=== PATIENT | male | born 1945 | race Caucasian/White ===

== ENCOUNTER 2016-07-20 14:16 | Inpatient (IN) | payer OTHER, MEDICAID ==
[2016-07-20] MEDS ORDERED: NS 1,000 ML IV ONE ×2 (14:35→14:41)
--- NOTE | 2016-07-20 14:35 | EDPHY ---
H & P HPI/ROS: CHIEF COMPLAINT: Diarrhea HISTORY OF PRESENT ILLNESS: The patient is a 71 year old male, brought in by EMS with diarrhea for the past 4 days. The patient has 4-5 episodes of diarrhea daily. Diarrhea is nonbloody and not dark. He denies abdominal pain or vomiting. The patient has associated chills and lightheadedness. He has not fainted and he has no associated chest pain. The patient is currently on doxycycline for ?hx of MRSA?. He has an open wound to his left lower extremity that has been erythematous for a few months. He is followed by a strategy specialist for this. The patient's home care nurse has noticed the patient's blood pressure has been lower recently. Patient denies fever or urinary complaints. No recent cold symptoms. Patient reports that the erythema and swelling of his right leg is the same as it has been for months. REVIEW OF SYSTEMS: Aside from elements discussed in the HPI, a comprehensive 10-point review of systems was reviewed and is negative. PAST MEDICAL HISTORY: DVT, PE, Cardiac stents, Gastric ulcer SOCIAL HISTORY: The patient lives at home alone, he has home healthcare. VITAL SIGNS: Reviewed by me. BP 95/41 GENERAL: Overweight, resting comfortably in no respiratory distress. HEENT: Atraumatic. Eyes: No icterus, no injection. Mouth: dry mucous membranes. No erythema or lesions. Neck: supple with no adenopathy. LUNGS: Clear to auscultation bilaterally, no wheezes, rhonchi or rales. CARDIAC: Regular rate and rhythm, no rubs, murmurs or gallops. ABDOMEN: Obese, soft, no focal tenderness. BACK: No CVA tenderness. EXTREMITIES: 4+ edematous bilateral lower extremities, deformities of both feet. Left lower leg has a dressed, healing wound on the medial calf. Diffuse erythema extending up to mid thigh on medial aspect. NEURO: Alert and oriented, grossly nonfocal. SKIN: Warm and dry, no rash. PSYCHIATRIC: Normal mentation, no agitation. Portions of this note were transcribed by a manager medical. I personally performed a history, physical exam, medical decision making, and confirmed accuracy of information the transcribed note. - Personal History Tetanus Vaccine Date: 2007 - Medical/Surgical History Hx Asthma: No Hx Chronic Respiratory Disease: No Hx Diabetes: Yes Hx Cardiac Disease: Yes Hx Renal Disease: Yes Hx Cirrhosis: No Hx Alcoholism: No Hx HIV/AIDS: No Hx Splenectomy or Spleen Trauma: No Other PMH: NIDDM, CAD WITH STENTS 05/2013 AND 06/2013, DVT, HTN, CRI, CELLULITIS, FASCIITIS,RHEUMATOID ARTHRITIS, HYPOTHYROID, ADHD, OA, gi bleed - Social History Smoking Status: Never smoked Constitutional: Initial Vital Signs Temperature (C) 36.8 C 07/20/16 14:32 Heart Rate 66 07/20/16 14:32 Respiratory Rate 20 07/20/16 14:32 Blood Pressure 95/41 L 07/20/16 14:32 O2 Sat (%) 93 07/20/16 14:32 O2 Delivery Mode Room Air Allergies/Adverse Reactions: Sulfa (Sulfonamide Antibiotics) Allergy (Severe, Verified 10/20/13 18:35) Hives vancomycin Allergy (Verified 06/23/14 21:58) Home Medications: Medication Instructions Recorded Doxycycline Hyclate 50 mg PO BID 05/27/11 Folic Acid [Folic Acid 1 MG (*)] 1 mg PO DAILY 11/02/12 Pioglitazone HCl [Actos 15mg (*)] 15 mg PO DAILY 11/02/12 Ranitidine HCl [Ranitidine HCl 150 150 mg PO DAILY@199911/02/12 mg] Sertraline HCl [Zoloft 100mg (*)] 100 mg PO DAILY 11/02/12 Ascorbic Acid [Vitamin C 500 mg 1,000 mg PO DAILY 06/10/13 (*)] Clotrimazole 1% [Lotrimin 1%] 1 oneal TP DAILY PRN 06/10/13 EPINEPHrine [Epipen 0.3 MG] 0.3 mg IM ONCE PRN 06/10/13 Fluocinonide/Emollient Base 15 gm TP BID PRN 06/10/13 [Fluocinonide-Emol 0.05% Cream] Levothyroxine [Synthroid 112 mcg 112 mcg PO DAILY06 06/10/13 (*)] Multivitamins [Multivitamin (*)] 1 each PO DAILY 06/10/13 Atorvastatin Calcium [Lipitor 40 40 mg PO DAILY 07/01/13 mg (*)] Herbals/Supplements -Info Only 1 each PO AD 07/01/13 methYLPHENIDATE HCL [Ritalin 10mg 10 mg PO DAILY 07/01/13 (*)] Rituxan Dose Unknown 1 infusset IV Q180D 09/04/13 Silver Sulfadiazine [Thermazene 1 oneal TP DAILY 09/04/13 (*)] Baclofen [Baclofen 10 mg (*)] 10 mg PO BID 06/24/14 Leflunomide [Arava 20 mg (*)] 20 mg PO DAILY 06/24/14 Methylphenidate HCl [Ritalin 5mg 5 mg PO DAILY PRN 06/24/14 (*)] Tamsulosin HCl [Flomax 0.4 MG (*)] 0.4 mg PO DAILY 06/24/14 Ferrous Sulfate [Ferrous Sulf 325 325 mg PO DAILY #30 tab 06/26/14 MG (OTC)] Pantoprazole Sodium [Protonix 40mg 40 mg PO DAILY #30 tab 06/26/14 (RX)] Calcitriol [Calcitriol (*)] 0.25 mcg PO DAILY 07/20/16 Enalapril Maleate [Vasotec 5 MG 5 mg PO BID 07/20/16 (*)] Furosemide [Lasix 40 MG (*)] 40 mg PO BID 07/20/16 Gabapentin [Neurontin 300 MG (*)] 300 mg PO BID@07/20/16 Gabapentin [Neurontin 300 MG (*)] 600 mg PO HS 07/20/16 Hydrocodone/Acetaminophen [Challis 0.5 tab PO Q4H PRN 07/20/16 5/325 (*)] Warfarin Sodium [Coumadin 5MG (*)] 10 mg PO Q2D 07/20/16 Warfarin Sodium [Coumadin 7.5MG 7.5 mg PO Q2D 07/20/16 (*)] amLODIPine BESYLATE [Norvasc 5 mg 5 mg PO BID 07/20/16 (*)] Medical Decision Making - Diagnostics EKG Interpretation: 12-LEAD EKG: Please see the full report in [facility]. My interpretation: Sinus rhythm, low-voltage Imaging: Results: An ultrasound scan of the left lower extremity was obtained. The results of the study were reported to me: No evidence of DVT. Please see the full radiology report. The study was read by Dr. Garcia. I discussed the results of the study with the patient. ED Course/Re-evaluation: Plan for stool sample and urinalysis. Plan to evaluate for possible sepsis due to redness and warmth of his lower extremity. Labs and lactic acid are pending. 4:00 p.m.: I reevaluated the patient, he tells me he received 2 rounds of Augmentin in April. Clostridium difficile is suspected. Stool sample will be sent. Patient meets sepsis criteria. He his hypotensive 95/41 on arrival. He has a lactic acid of 3.1. WBC is elevated at 15.61. Labs show renal insufficiency, Creatinine is 2.6 and BUN 47. I spoke to the hospitalist, the patient will be admitted to Dr. Douglas. IV was established, the patient received normal saline. I ordered a lower extremity US. US is negative for acute DVT. Dr. Reynolds saw the patient. He was started on Ceftriaxone. Severe Sepsis/Septic Shock Care NoteThe patient presents to the ED with cellulits and diarrhea identified as an acute infection. The patient did have evidence of end-organ dysfunction and met criteria for severe sepsis. This condition was identified by myself at 15:41 The patients vital signs are 95/58 , 73, 20, 95%, 36.8. The patient has a venous lactic acid performed within 3 hours of the identification of severe sepsis which was found to be 3.1 The patient has blood cultures drawn and received ceftriaxone IV, per the severe sepsis treatment protocol. The initial lactate was elevated and rechecked within 6 hours of the identification time of severe sepsis and found to be 1.4. Differential Diagnosis: Diff dx considered included cellulits, diarrhea, c difficle, urosepsis, dehydration, renal insufficiency, infectious diarrhea, cardiac causes. Consult/Admit Bed Type: Dr Douglas [facility] - Data Points Laboratory Results: Laboratory Results 07/20/16 14:40 07/20/16 14:40 Medications Given: Discontinued Medications Heparin Sodium (Porcine) (Heparin Sc Injection) 5,000 unit SC Q8 SARAH Stop: 01/16/17 21:59 Last Admin: 07/21/16 15:10 Dose: Not Given Sodium Chloride (Ns) 1,000 mls @ 0 mls/hr IV ONCE ONE PRN Reason: Wide Open Stop: 07/20/16 14:36 Last Admin: 07/20/16 14:45 Dose: 1,000 mls Sodium Chloride (Ns) 1,000 mls @ 0 mls/hr IV ONCE ONE PRN Reason: Wide Open Stop: 07/20/16 14:42 Last Admin: 07/20/16 14:50 Dose: 1,000 mls Ceftriaxone Sodium/Dextrose (Rocephin 1 Gm (Premix)) 50 mls @ 100 mls/hr IV DAILY SARAH PRN Reason: Protocol Stop: 08/19/16 17:59 Last Admin: 07/21/16 08:55 Dose: 50 mls Ceftriaxone Sodium/Dextrose (Rocephin 1 Gm (Premix)) 50 mls @ 100 mls/hr IV ONCE ONE PRN Reason: Protocol Stop: 07/21/16 18:43 Last Admin: 07/21/16 18:30 Dose: 50 mls Ceftriaxone Sodium 2 gm/ (Dextrose) 50 mls @ 100 mls/hr IV DAILY SARAH PRN Reason: Protocol Stop: 08/21/16 08:59 Last Admin: 07/22/16 07:59 Dose: 50 mls Departure - Departure Disposition: [facility] Inpatient Acute Clinical Impression: Renal insufficiency Diarrhea Qualifiers: Diarrhea type: unspecified type Qualified Code(s): R19.7 - Diarrhea, unspecified Hypotension Qualifiers: Hypotension type: unspecified hypotension type Qualified Code(s): I95.9 - Hypotension, unspecified Cellulitis Qualifiers: Site of cellulitis: extremity Site of cellulitis of extremity: lower extremity Laterality: left Qualified Code(s): L03.116 - Cellulitis of left lower limb Condition: Fair Report Scribed for: Molly Rod Report Scribed by: Sarah Mello Date of Report: 07/20/16 Time of Report: 14:35
[2016-07-20 14:50] LABS: % IMMATURE GRANULYOCYTES 1.5 % (0.0-1.1); ABSOLUTE IMMATURE GRANULOCYTES 0.24 10^3/uL (0.00-0.10); ADD DIFF? NO; ADD MORPH? NO; ADD SCAN? NO; ATYPICAL LYMPHOCYTE FLAG 0 (0-99); FRAGMENT RBC FLAG 0 (0-99); HEMATOCRIT 37.2 % (40.0-51.0); HEMOGLOBIN 12.3 g/dL (13.7-17.5); LEFT SHIFT FLG 40 (0-99); LIPEMIA HEMOLYSIS FLAG 80 (0-99); MEAN CELL HEMOGLOBIN 29.3 pg (27.9-34.1); MEAN CELL HEMOGLOBIN CONCENTR. 33.1 g/dL (32.4-36.7); MEAN CELL VOLUME 88.6 fL (81.5-99.8); MEAN PLATELET VOLUME 11.4 fL (8.7-11.7); PLATELET CLUMPS FLAG 0 (0-99); PLATELET COUNT 199 10^3/uL (150-400); RED CELL DISTRIBUTION WIDTH 15.7 % (11.5-15.2)
--- NOTE | 2016-07-20 15:15 | CPEKG ---
Heart Rate: 62 RR Interval: 968 P-R Interval: 156 QRSD Interval: 90 QT Interval: 392 QTC Interval: 398 P Protection: 68 QRS Protection: 28 T Wave Protection: 31 EKG Severity - BORDERLINE ECG - EKG Impression: SINUS RHYTHM EKG Impression: LOW VOLTAGE THROUGHOUT Electronically Signed By: Molly Rod 20-Jul-2016 22:37:23
[2016-07-20 15:29] LABS: ALANINE AMINOTRANSFERASE 30 IU/L (21-72); ALBUMIN 3.8 g/dL (3.5-5.0); ALKALINE PHOSPHATASE 65 IU/L (38-126); ASPARTATE AMINOTRANSFERASE 50 IU/L (17-59); BILIRUBIN,TOTAL 0.8 mg/dL (0.1-1.4); BILIRUBIN-CONJUGATED 0.5 mg/dL (0.0-0.5); BILIRUBIN-UNCONJUGATED 0.3 mg/dL (0.0-1.1); CALCIUM 8.7 mg/dL (8.5-10.4); CARBON DIOXIDE 22 mEq/l (22-31); CHLORIDE 99 mEq/L (97-110); CREATININE 2.6 mg/dL (0.7-1.3); GLOMERULAR FILTRATION RATE 24; GLUCOSE 143 mg/dL (70-100); SODIUM 135 mEq/L (134-144); TOTAL PROTEIN 6.6 g/dL (6.3-8.2)
[2016-07-20 15:48] LABS: ANION GAP 14 mEq/L (8-16); POTASSIUM 4.1 mEq/L (3.5-5.2)
[2016-07-20] MEDS ORDERED: ACETAMINOPHEN 325 MG TAB PO PRN (17:57)
[2016-07-20] MEDS ORDERED: CEFTRIAXONE 1 GM/DEXTROSE/50 ML BAG IV ONE (17:57)
[2016-07-20] MEDS ORDERED: ZOLPIDEM TARTRATE 5 MG TAB PO PRN (17:57)
[2016-07-20] MEDS ORDERED: ONDANSETRON DISINTEGRATING 4 MG TAB PO PRN (17:57)
[2016-07-20] MEDS ORDERED: ONDANSETRON 4 MG/2 ML VIAL IVP PRN (17:57)
[2016-07-20] MEDS ORDERED: ACETAMINOPHEN 325 MG TAB ONE (18:15)
[2016-07-20 18:27] LABS: COLOR YELLOW; LEUKOCYTE ESTERASE,URINE NEGATIVE (NEGATIVE); NITRITE,URINE NEGATIVE (NEGATIVE)
--- NOTE | 2016-07-20 19:44 | GCON ---
[f rep st] CONSULTATION INFECTIOUS DISEASE CONSULTATION DATE OF CONSULTATION: 07/20/2016 REFERRING PHYSICIAN: Capo Douglas MD REASON FOR CONSULTATION: Left lower extremity cellulitis. HISTORY OF PRESENT ILLNESS: A 71-year-old male previously seen by the Infectious Disease service with left lower extremity necrotizing fasciitis and history of MRSA dating back to August of 2010, who presents to the emergency room after describing rigors which started on 07/17, followed by 3-4 liquid bowel movements daily, associated with crampy abdominal pain. The patient was reluctant to come to the emergency room, but finally with a pressing of his nurse, ex-, and another individual, he presented to the emergency room for further evaluation. Upon presenting to the emergency room, the patient's blood pressure was 95/41, heart rate was 66, and after 2 L of normal saline, it was 105/50, heart rate of 60. The patient was also found to have a leukocytosis of 15.6 and left lower extremity cellulitis and was admitted for further management and evaluation of left lower extremity cellulitis and diarrhea. ID was consulted for assistance with management. The patient takes 50 mg of doxycycline daily and reports 2 courses of Augmentin in the last year. PAST MEDICAL HISTORY: MRSA, DVTs, pulmonary embolus, cardiac stents, gastric ulcer, diabetes type 2, hyperlipidemia, rheumatoid arthritis, and necrotizing fasciitis and bipolar disorder. Renal insufficiency:reports that his baseline creatinine clearance is in the 30s. Last creatinine in our system was 1.7. PAST SURGICAL HISTORY: Positive for debridement of his left lower extremity, and tonsillectomy. SOCIAL HISTORY: He is . Former alcohol. No illicit substances. Former tobacco. FAMILY HISTORY: Positive for diabetes. ALLERGIES: The patient reports red man syndrome to vancomycin when administered too rapidly. He tolerates this well if given slowly. CURRENT MEDICATIONS: Medication list is still pending reconciliation. REVIEW OF SYSTEMS: A complete 10-point review of systems was performed and is negative, except as mentioned in the HPI. Of note, patient does not have eat out and he has no associated vomiting. PHYSICAL EXAM: VITAL SIGNS: Blood pressure 105/50, heart rate 60, respiratory rate 20, saturation 98% on 3 L, temperature 36.9. GENERAL: This is an elderly male, inappropriately jovial, nontoxic. HEENT: He is edentulous. Slightly dry mucous membranes. Pupils are reactive bilaterally. Scattered seborrhea on his face. NECK: Supple. No lymphadenopathy. CARDIOVASCULAR: Regular rate and rhythm. No murmurs. CHEST: Clear to auscultation bilaterally. ABDOMEN: Obese, soft, nontender. Slightly distended. Bowel sounds are present. EXTREMITIES: Patient had circumferential erythema on the dorsum of his foot, his calf, and tracking up his medial leg. It was warm to palpation and more edematous than baseline. There was 2 to 3+ edema. Dorsalis pedis pulses were not palpable bilaterally. NEUROLOGICAL: He is moving all 4 extremities equally. He is alert oriented x4. LABORATORY: White count 15,000, hematocrit 37, platelets of 199, 87% neutrophils. Creatinine 2.6. AST 50, ALT 30, alkaline phosphatase 65. Blood cultures are currently being collected. 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 Nonetheless , cannot completely exclude the role of methicillin-resistant Staphylococcus aureus or other Strep etiology, but chronic doxycycline therapy makes the etiology of methicillin-resistant Staphylococcus aureus slightly less likely. 1. Left lower extremity cellulitis, wound on posterior ankle/calf healed. 2. Diarrhea. Clostridium difficile, food-borne illness versus acute illness related to cellulitis. 3. Acute on Chronic renal insufficiency 4. Elevated lactate/lower BP likely due to volume depletion from diarrhea, no clearly sepsis based on clinical exam RECOMMENDATIONS: 1. Would initiate IV ceftriaxone 1gm daily for coverage of soft tissue infection. No renal dosing needed. 2. Agree with GI panel PCR for evaluation of diarrhea. 3. Obtain blood cultures as you are doing. 4. Elevate left lower extremity. The patient was given education about left lower extremity. 5. Vancomycin is not a true allergy. He simply has red man syndrome to rapid infusion. Probably safe to use again if needed. Thank you for this consultation. We will continue to follow along with you. /[id number]/MODL MTDD
--- NOTE | 2016-07-20 21:40 | GHP ---
[f rep st] HISTORY AND PHYSICAL DATE OF ADMISSION: 07/20/2016 CHIEF COMPLAINT: Diarrhea. HISTORY: The patient is a 71-year-old man who has been feeling well recently but 3 days ago developed acute onset of profuse watery nonbloody diarrhea associated with severe rigors. He has not had much in the way of any abdominal pain and has not had nausea or vomiting. He has not, however, been able to get much fluid in and is having a large number of stools per day he cannot quantify. He does feel somewhat lightheaded. There is no chest pain, shortness of breath, cough, rash, joint pains, ocular pain, mucosal ulcerations or pains. He does not have any previous history of such a diarrheal illness or anything that sounds like an inflammatory bowel disease. Of note, the patient has taken 2 recent courses of oral Augmentin in the outpatient setting because of an ongoing chronic leg ulcer. Therefore, C difficile should be considered. He has not had any significant travel, has not eaten any suspicious foods, and is not aware of any family or associated acquaintances who have a similar illness. REVIEW OF SYSTEMS: Comprehensive 10-system review reveals only chronic ongoing swelling in his left leg where he has a chronic, slow-healing ulcer that he has been managing at the wound care clinic. This is not painful, but he has a diabetic peripheral neuropathy that prevents him from having sensation there. He does have ongoing neuropathy tingling. Otherwise 10-system review of systems is unrevealing. PAST MEDICAL HISTORY: Includes coronary disease with stents, diabetes mellitus , DVT of the leg, chronic kidney disease with creatinine usually ranging around 1.3 to 1.9, chronic swelling in his legs, rheumatoid arthritis, ADHD, sleep apnea, and a GI bleed while on anticoagulation. FAMILY HISTORY: Mother of diabetic complications. Father had a colonic rupture and from that. SOCIAL HISTORY: The patient is . He lives locally here in an apartment. He quit smoking 7 years ago. MEDICATION ALLERGIES: Sulfa and vancomycin. MEDICATIONS: Medication list has not yet been reconciled by our clinical pharmacist, and I do not have an updated medicine list, but will review that when available. PHYSICAL EXAMINATIONVITAL: SIGNS: His initial blood pressure at 95/41 and now, after 2 L of IV normal saline, is up to 105/50. Pulse is in the 60s, respirations 20. No fever. Good oxygen saturation. GENERAL: Patient is lying on a hospital gurney, wide awake, alert, oriented, relaxed, talkative.SKIN: Warm and dry and with good color. HEENT: Unremarkable. RESPIRATORY: Respirations not labored. Lungs clear. HEART: Regular. No murmur or gallop. ABDOMEN: Has bowel sounds. Nondistended. Nontender. No palpable abnormalities. UPPER EXTREMITIES: Unremarkable. LOWER EXTREMITIES: Remarkable for the left leg with a chronic ulcer on the lateral aspect of the low calf/high ankle area in soft tissue there. This is now healed to the point of closure of the skin. There is no drainage from this area, nothing necrotic. There is, however, a cellulitis from about the knee down to the toes in that left leg. This is warm and erythematous; not tender due to his neuropathy. He does have bilateral pitting edema, which is equal on both sides in the legs. NEUROLOGIC: Mentation is normal. MUSCULOSKELETAL: Joints are unremarkable. HEMATOLOGIC: There is no bleeding or bruising. LABORATORY DATA: So far include a white count of 15,000, hemoglobin 12.3, normal platelets, predominance of neutrophils. Initial lactic acid 3.1; is repeated at 1.4 after some IV hydration. He has a creatinine of 2.6, BUN 47; otherwise normal basic metabolic panel with sugars 143. Liver enzymes and bilirubin are normal. Lipase is normal.There is Doppler venous ultrasound of leg on the left with old recanalized thrombus; nothing acute. There is a 12- lead EKG done in the ER, and I have reviewed that tracing which shows a sinus rhythm with no acute ischemic or other acute changes. IMPRESSION: 1. Acute sepsis. 2. Acute diarrheal illness, most likely infectious; prominence of non-bloody diarrhea with rigors. 3 Cellulitis of his left leg, probably related to his chronic leg ulcer. No evidence of abscess. 4 Acute renal failure related to the above. 5. Acute hypotension. 6. Chronic kidney disease. 7. Chronic obstructive sleep apnea. 8. History of heart disease, currently stable, with coronary stents. 9. Diabetes mellitus with complications of chronic kidney disease and peripheral neuropathy. 10. History of deep vein thrombosis in the past with current high risk for developing deep vein thrombosis.The patient is responding well to fluid resuscitation in the ER regarding his sepsis. Will have to follow his renal functions very closely. In terms of his infectious illnesses: His cellulitis is problematic in that it has not responded to oral outpatient antibiotics, and he is allergic to vancomycin. I will consult Infectious Diseases to determine appropriate antibiotic therapy at this time. In addition, the patient does have an acute diarrheal illness after 2 recent rounds of Augmentin, and certainly C difficile is a possibility, though multiple other infectious etiologies are possible, as well. At this point, admission is mandated, given his multitude of overlapping medical problems and will need inpatient care given the sepsis and the renal failure. PLAN: 1. Admission to hospital. 2. Ongoing aggressive IV fluid resuscitation. 3. Infectious Disease consult and start antibiotics after discussing most appropriate therapy given his allergies. 4. Stool samples ordered for identification of infectious pathogens, including possibly C difficile. 5. Contact isolation. 6. Elevation of legs, and once we have him fluid resuscitated and renal function resolved, it may be useful to use compression and even diuretics to reduce edema for further treatment of his leg issues. 7. DVT prophylaxis. /[id number]/MODL and [id number]/MODL. KEITH
[2016-07-20] MEDS: HEPARIN 5,000 UNIT/0.5 ML SYR SC SCH (22:09)
[2016-07-20] MEDS ORDERED: FLUOCINONIDE 0.05% 15 GM CREAM TP PRN (23:19)
[2016-07-20] MEDS ORDERED: CLOTRIMAZOLE 1% 15 GM CRTUBE TP PRN (23:19)
[2016-07-21 05:07] LABS: % IMMATURE GRANULYOCYTES 0.5 % (0.0-1.1); ABSOLUTE IMMATURE GRANULOCYTES 0.05 10^3/uL (0.00-0.10); ADD DIFF? NO; ADD MORPH? NO; ADD SCAN? NO; ATYPICAL LYMPHOCYTE FLAG 0 (0-99); FRAGMENT RBC FLAG 0 (0-99); HEMATOCRIT 33.2 % (40.0-51.0); HEMOGLOBIN 10.8 g/dL (13.7-17.5); LEFT SHIFT FLG 20 (0-99); LIPEMIA HEMOLYSIS FLAG 80 (0-99); MEAN CELL HEMOGLOBIN 29.8 pg (27.9-34.1); MEAN CELL HEMOGLOBIN CONCENTR. 32.5 g/dL (32.4-36.7); MEAN CELL VOLUME 91.5 fL (81.5-99.8); MEAN PLATELET VOLUME 11.1 fL (8.7-11.7); PLATELET CLUMPS FLAG 0 (0-99); PLATELET COUNT 170 10^3/uL (150-400); RED BLOOD CELL COUNT 3.63 10^6/uL (4.40-6.38); RED CELL DISTRIBUTION WIDTH 15.7 % (11.5-15.2)
[2016-07-21 05:20] LABS: INR 2.44 (0.83-1.16); PROTIME(PATIENT) 26.7 SEC (12.0-15.0)
[2016-07-21 05:32] LABS: ANION GAP 9 mEq/L (8-16); CALCIUM 8.4 mg/dL (8.5-10.4); CARBON DIOXIDE 22 mEq/l (22-31); CHLORIDE 105 mEq/L (97-110); CREATININE 2.2 mg/dL (0.7-1.3); GLOMERULAR FILTRATION RATE 29; GLUCOSE 117 mg/dL (70-100); SODIUM 136 mEq/L (134-144)
[2016-07-21] MEDS: HEPARIN 5,000 UNIT/0.5 ML SYR SC SCH ×2 (06:37→15:10)
[2016-07-21] MEDS: LEVOTHYROXINE 112 MCG TAB PO SCH (06:40)
[2016-07-21] MEDS: CALCITRIOL 0.25 MCG CAP PO SCH (08:55)
[2016-07-21] MEDS: ASCORBIC ACID 500 MG TAB PO SCH (08:55)
[2016-07-21] MEDS: SERTRALINE HCL 100 MG TAB PO SCH (08:55)
[2016-07-21] MEDS: PANTOPRAZOLE SODIUM 40 MG TAB PO SCH (08:55)
[2016-07-21] MEDS: PIOGLITAZONE HCL 15 MG TAB PO SCH (08:56)
[2016-07-21] MEDS: BACLOFEN 10 MG TAB PO SCH ×2 (08:56→20:11)
[2016-07-21] MEDS: MULTIVITAMINS 1 EACH TAB PO SCH (08:56)
[2016-07-21] MEDS: TAMSULOSIN HCL 0.4 MG CAP PO SCH (08:56)
[2016-07-21] MEDS: ATORVASTATIN CALCIUM 40 MG TAB PO SCH (08:57)
[2016-07-21] MEDS: ENALAPRIL MALEATE 5 MG TAB PO SCH ×2 (08:58→20:11)
[2016-07-21] MEDS: amLODIPine BESYLATE 5 MG TAB PO SCH ×2 (08:58→20:11)
[2016-07-21] MEDS: FOLIC ACID 1 MG TAB PO SCH (09:18)
[2016-07-21] MEDS: LEFLUNOMIDE 20 MG TAB PO SCH (09:18)
[2016-07-21] MEDS: FERROUS SULFATE 325 MG TAB PO SCH (09:18)
[2016-07-21] MEDS: GABAPENTIN 300 MG CAP PO SCH ×3 (09:18→20:10)
[2016-07-21] MEDS: SILVER SULFADIAZINE 50 GM JAR TP SCH (09:38)
--- NOTE | 2016-07-21 10:07 | PCMIDPN ---
Assessment/Plan: #LLE cellulitis, elevated lactate on admit may have been from volume depletion from diarrhea. Wound on back of L ankle/calf healed. Significant recession of cellulitis compared to yesterday and improved leukocytosis --elevation LLE (currently not elevating) --continue ceftriaxone, length of therapy to be determined by response, still needs IV antibiotics #Diarrhea - much less today, suggests related to systemic illness from LLE cellulitis --if loose stool okay to r/o cdiff --contact precautions were for concern for cdiff #ARF on CRI: Cr improved today. Ceftriaxone liver cleared, no renal dosing needed #Leukocytosis: due to infection, improving # Remote h/o MRSA: contact isolation not need for this Meds ceftriaxone 1gm IV daily, #2 Micro 07/20 blood cx (2) pending Subjective: patient reports stool sample last night was lost ate breakfast without problems feels better today no pain LLE due to underlying neuropathy Objective: Vital Signs Temp Pulse Resp BP Pulse Ox 36.6 C 55 L 14 102/62 95 07/21/16 08:20 07/21/16 08:20 07/21/16 08:20 07/21/16 08:20 07/21/16 08:20 Laboratory Results 07/21/16 04:35 07/21/16 04:35 07/20/16 07/21/16 07/22/16 05:59 05:59 05:59 Intake Total 2250 Output Total 500 550 Balance 1750 -550 - Physical Exam General Appearance: alert, no apparent distress, obese, non-toxic EENT: other (no teeth, MMM) Respiratory: lungs clear Neck: supple Cardiac/Chest: regular rate, rhythm Extremities: pedal edema (L>R), erythema (significant recession - yesterday erythema up to knee, now erythema foot extending to mid lee; erythema medial thigh remains, but less bright) Peripheral Pulses: 0: dorsalis-pedis (R) (doppler), dorsalis-pedis (L) (doppler) Abdomen: non-tender, soft Male Genitalia: No hoyos Skin: normal color, warm/dry, No diaphoresis Neuro/Psych: alert, normal mood/affect, oriented x 3 ICD10 Worksheet Patient Problems: Problems Problem Status Onset Diarrhea Acute Hypotension Acute Renal insufficiency Acute CAD - Coronary arteriosclerosis Acute Chronic renal insufficiency, stage II (mild) Acute Diabetes Acute Hyperlipidemia Acute
--- NOTE | 2016-07-21 14:10 | HOSPPROG ---
Hospitalist Progress Note Assessment/Plan: This is a 71-year-old male History of rheumatoid arthritis new to my care today presenting with: # acute diarrheal illness (improving) stool samples have not been obtained - send stool studies if diarrhea persists # hypotension most likely due to dehydration in the setting of diarrhea versus less likely sepsis ( resolved) # left lower extremity cellulitis (improving on Rocephin day 2.) - continue Rocephin per Infectious Disease # acute on chronic kidney disease (improving) - continue to monitor # history coronary artery disease ( stable) # history diabetes mellitus # history DVT with therapeutic INR - continue home dose of warfarin and monitor INR daily # resolved lactic acidosis most likely due to hypoperfusion in the setting of dehydration disposition: Continue inpatient care and follow up blood culture results Subjective: improving diarrhea. no fevers or chills. improving redness in his left leg Objective: Vital Signs Temp Pulse Resp BP Pulse Ox 36.8 C 58 L 14 99/64 L 93 07/21/16 11:58 07/21/16 11:58 07/21/16 11:58 07/21/16 11:58 07/21/16 11:58 Laboratory Results 07/21/16 04:35 07/21/16 04:35 07/20/16 07/21/16 07/22/16 05:59 05:59 05:59 Intake Total 2250 Output Total 500 550 Balance 1750 -550 PT 26.7 SEC (12.0-15.0) H 07/21/16 04:35 INR 2.44 (0.83-1.16) H 07/21/16 04:35 lower extremity Doppler was reviewed and negative for DVT - Physical Exam Eyes: PERRL, anicteric sclera, EOMI Ears, Nose, Mouth, Throat: moist mucous membranes, hearing normal, ears appear normal, no oral mucosal ulcers Cardiovascular: regular rate and rhythym, no murmur, rub, or gallop Respiratory: no respiratory distress, no rales or rhonchi, clear to auscultation Gastrointestinal: normoactive bowel sounds, soft, non-tender abdomen, no palpable masses, No guarding, No rebound Genitourinary: no bladder fullness, no bladder tenderness, no renal bruits Skin: warm, erythema ( left tibial area without induration or fluctuance) Neurologic: AAOx3, CN II-XII Intact, No facial droop ICD10 Worksheet Patient Problems: Problems Problem Status Onset CAD - Coronary arteriosclerosis Acute Diabetes Acute Hyperlipidemia Acute Chronic renal insufficiency, stage II (mild) Acute Diarrhea Acute Hypotension Acute Renal insufficiency Acute
[2016-07-21] MEDS: WARFARIN SODIUM 7.5 MG TAB PO SCH (15:32)
[2016-07-21] MEDS: FAMOTIDINE 20 MG TAB PO SCH (20:20)
[2016-07-22 05:15] LABS: INR 2.28 (0.83-1.16); PROTIME(PATIENT) 25.3 SEC (12.0-15.0)
[2016-07-22 05:30] LABS: ANION GAP 10 mEq/L (8-16); CARBON DIOXIDE 22 mEq/l (22-31); CHLORIDE 108 mEq/L (97-110); CREATININE 1.4 mg/dL (0.7-1.3); GLOMERULAR FILTRATION RATE 50; GLUCOSE 116 mg/dL (70-100); POTASSIUM 4.4 mEq/L (3.5-5.2); SODIUM 140 mEq/L (134-144)
[2016-07-22] MEDS: ATORVASTATIN CALCIUM 40 MG TAB PO SCH (07:59)
[2016-07-22] MEDS: PANTOPRAZOLE SODIUM 40 MG TAB PO SCH (07:59)
[2016-07-22] MEDS: FERROUS SULFATE 325 MG TAB PO SCH (07:59)
[2016-07-22] MEDS: amLODIPine BESYLATE 5 MG TAB PO SCH ×2 (07:59→20:41)
[2016-07-22] MEDS: MULTIVITAMINS 1 EACH TAB PO SCH (08:00)
[2016-07-22] MEDS: ASCORBIC ACID 500 MG TAB PO SCH (08:00)
[2016-07-22] MEDS: PIOGLITAZONE HCL 15 MG TAB PO SCH (08:00)
[2016-07-22] MEDS: ENALAPRIL MALEATE 5 MG TAB PO SCH ×2 (08:00→20:41)
[2016-07-22] MEDS: LEFLUNOMIDE 20 MG TAB PO SCH (08:00)
[2016-07-22] MEDS: TAMSULOSIN HCL 0.4 MG CAP PO SCH (08:00)
[2016-07-22] MEDS: SERTRALINE HCL 100 MG TAB PO SCH (08:00)
[2016-07-22] MEDS: BACLOFEN 10 MG TAB PO SCH ×2 (08:00→20:43)
[2016-07-22] MEDS: LEVOTHYROXINE 112 MCG TAB PO SCH (08:00)
[2016-07-22] MEDS: FOLIC ACID 1 MG TAB PO SCH (08:00)
[2016-07-22] MEDS: CALCITRIOL 0.25 MCG CAP PO SCH (08:00)
[2016-07-22] MEDS: GABAPENTIN 300 MG CAP PO SCH ×3 (08:00→20:41)
[2016-07-22] MEDS ORDERED: cefTRIAXone 1 GM in D5W 50 ML IV SCH (09:00)
[2016-07-22] MEDS ORDERED: cefTRIAXone 2 GM in D5W 50 ML IV SCH (09:00)
--- NOTE | 2016-07-22 10:31 | PCMIDPN ---
Assessment/Plan: #LLE cellulitis, Continued gradual improvement of erythema - decreased intensity. --elevation LLE (still not elevating) --continue ceftriaxone, length of therapy to be determined by response, another day of IV antibiotics, re-assess tomorrow #Diarrhea - almost resolved, GI panel negative, suspect systemic illness related to LLE cellulitis --dc contact isolation # CoNS in 2 sets of blood cx, contaminant based on clinical improvement with Rx ceftriaxone + unusual cause of cellulitis #ARF on CRI: further improvement of Cr. Ceftriaxone liver cleared, no renal dosing needed #Leukocytosis: WBC not repeated today # Remote h/o MRSA: contact isolation not need for this Meds ceftriaxone 1gm IV daily, #3 Micro 07/20 blood cx (05/31) CoNS - suspect contaminant Care coordinated with nursing and Dr. Paul Subjective: Feeling much better, diarrhea almost resolved Very cheerful, interactive Objective: Vital Signs Temp Pulse Resp BP Pulse Ox 36.6 C 53 L 18 123/66 H 95 07/22/16 04:27 07/22/16 08:00 07/22/16 08:00 07/22/16 08:00 07/22/16 08:00 Microbiology 07/20/16 19:15 Gastrointestinal Tract Panel (PCR) - Final Stool No Organism Detected Fecal Leukocyte Stain - Final 07/20/16 18:25 Blood Panel (PCR) - Final Blood Staph Coagulase Negative Laboratory Results 07/21/16 04:35 07/22/16 04:06 07/21/16 07/22/16 07/23/16 05:59 05:59 05:59 Intake Total 2250 1280 Output Total 500 2510 Balance 1750 -1230 Gen: pleasant nontoxic male NAD o/p MMM, fair dentition CV: felton no murmur Chest: clear B Abd: obese NT Ext: erythema LLE most prominent on dorsum of foot and back of ankle, significant decreased in intensity of erythema mid calf and medial thigh. Skin defect L posterior ankle, healed. Neuro: no motor deficits ICD10 Worksheet Patient Problems: Problems Problem Status Onset Diarrhea Acute Hypotension Acute Renal insufficiency Acute CAD - Coronary arteriosclerosis Acute Chronic renal insufficiency, stage II (mild) Acute Diabetes Acute Hyperlipidemia Acute
--- NOTE | 2016-07-22 12:36 | HOSPPROG ---
Hospitalist Progress Note Assessment/Plan: This is a 71-year-old male History of rheumatoid arthritis presenting with: # left lower extremity cellulitis (improving on Rocephin day 3) - continue Rocephin per Infectious Disease #Coag neg staph thought to be a contaminate based on clinical response to ctx # acute diarrheal illness (resolved) -no organisms isolated on gi panel # hypotension most likely due to dehydration in the setting of diarrhea versus less likely sepsis ( resolved) # acute on chronic kidney disease (improving) - continue to monitor # history coronary artery disease ( stable) # history diabetes mellitus # history DVT with therapeutic INR - continue home dose of warfarin and monitor INR daily # resolved lactic acidosis most likely due to hypoperfusion in the setting of dehydration disposition: Continue inpatient care. possible dc 07/23 pending clinical response to ctx and clearance by ID Subjective: no fevers or chills. improved diarrhea. no new complaints Objective: Vital Signs Temp Pulse Resp BP Pulse Ox 36.6 C 53 L 18 123/66 H 95 07/22/16 04:27 07/22/16 08:00 07/22/16 08:00 07/22/16 08:00 07/22/16 08:00 Microbiology 07/20/16 18:25 Blood Panel (PCR) - Final Blood Staph Coagulase Negative 07/20/16 19:15 Gastrointestinal Tract Panel (PCR) - Final Stool No Organism Detected Fecal Leukocyte Stain - Final Laboratory Results 07/21/16 04:35 07/22/16 04:06 07/21/16 07/22/16 07/23/16 05:59 05:59 05:59 Intake Total 2250 1280 Output Total 500 2510 Balance 1750 -1230 PT 25.3 SEC (12.0-15.0) H 07/22/16 04:06 INR 2.28 (0.83-1.16) H 07/22/16 04:06 - Physical Exam Constitutional: no apparent distress, appears nourished, not in pain Skin: other (left leg with improving erythema no induration/discharge or fluctuance) ICD10 Worksheet Patient Problems: Problems Problem Status Onset CAD - Coronary arteriosclerosis Acute Diabetes Acute Hyperlipidemia Acute Chronic renal insufficiency, stage II (mild) Acute Diarrhea Acute Hypotension Acute Renal insufficiency Acute Cellulitis Acute
[2016-07-22] MEDS: SILVER SULFADIAZINE 50 GM JAR TP SCH (14:31)
[2016-07-22] MEDS: WARFARIN SODIUM 5 MG TAB PO SCH (15:57)
--- NOTE | 2016-07-22 16:52 | WOCRNPDOC ---
WOCRN Advanced Assessment Note - Skin Integrity Problem, Advanced Assess Left Lower Leg Diabetic Ulcer Dressing Type: Open to Air Exudate Amount: None Exudate Characteristic(s): None Integumentary Issue Intervention: Lotion/Cream Applied (Antifungal cream) Priscilla Wound Tissue: Shiny, Thin, Dry Priscilla Wound Swelling: None Wound Bed Constitution: Healed Site Measurement - Head-to-Toe Length X Width X Depth (cm): Mixed cheloid scar tissue at site of past ulcer at medial-posterior LE, presently intact. Small 0.3 cm josé site at about 9 o'clock within the larger area appears to be the most recently open area. Discussed preventive care w/patient, including use of moisturizing creams appropriate to condition (e.g antifungal when fungal infection present, otherwise hydrophilic product such as Atractain), plus gentle compression. Provided with tubigrips size G. Report to ERICK Grier.
[2016-07-22] MEDS: FAMOTIDINE 20 MG TAB PO SCH (20:41)
[2016-07-23 03:57] LABS: INR 2.02 (0.83-1.16)
[2016-07-23 04:08] LABS: ANION GAP 10 mEq/L (8-16); CALCIUM 9.2 mg/dL (8.5-10.4); CARBON DIOXIDE 21 mEq/l (22-31); CHLORIDE 110 mEq/L (97-110); CREATININE 1.3 mg/dL (0.7-1.3); GLOMERULAR FILTRATION RATE 54; GLUCOSE 101 mg/dL (70-100); POTASSIUM 4.6 mEq/L (3.5-5.2); SODIUM 141 mEq/L (134-144)
[2016-07-23] MEDS: LEVOTHYROXINE 112 MCG TAB PO SCH (06:08)
[2016-07-23] MEDS: GABAPENTIN 300 MG CAP PO SCH ×3 (10:05→20:50)
[2016-07-23] MEDS: TAMSULOSIN HCL 0.4 MG CAP PO SCH (10:05)
[2016-07-23] MEDS: CALCITRIOL 0.25 MCG CAP PO SCH (10:05)
[2016-07-23] MEDS: ATORVASTATIN CALCIUM 40 MG TAB PO SCH (10:06)
[2016-07-23] MEDS: LEFLUNOMIDE 20 MG TAB PO SCH (10:06)
[2016-07-23] MEDS: BACLOFEN 10 MG TAB PO SCH ×2 (10:07→20:50)
[2016-07-23] MEDS: ASCORBIC ACID 500 MG TAB PO SCH (10:07)
[2016-07-23] MEDS: FOLIC ACID 1 MG TAB PO SCH (10:07)
[2016-07-23] MEDS: MULTIVITAMINS 1 EACH TAB PO SCH (10:07)
[2016-07-23] MEDS: PANTOPRAZOLE SODIUM 40 MG TAB PO SCH (10:08)
[2016-07-23] MEDS: ENALAPRIL MALEATE 5 MG TAB PO SCH ×2 (10:08→20:50)
[2016-07-23] MEDS: PIOGLITAZONE HCL 15 MG TAB PO SCH (10:09)
[2016-07-23] MEDS: amLODIPine BESYLATE 5 MG TAB PO SCH ×2 (10:09→20:50)
[2016-07-23] MEDS: SERTRALINE HCL 100 MG TAB PO SCH (10:09)
[2016-07-23] MEDS: FERROUS SULFATE 325 MG TAB PO SCH (10:10)
[2016-07-23] MEDS: SILVER SULFADIAZINE 50 GM JAR TP SCH (10:11)
--- NOTE | 2016-07-23 10:54 | PCMIDPN ---
Assessment/Plan: Assessment: Left lower extremity cellulitis with bacteremia. Patient with Staphylococcus coagulase negative in both sets of blood cultures from 07/20. Once it is identified as Staphylococcus epidermidis. The other set is identified as Staphylococcus hominis. These are very similar species and Staphylococcus hominis has been implicated in skin and soft tissue infections as well as bacteremia. Given the patient's underlying immunocompromise secondary to diabetes and poor circulation I am not fully convinced that these clearly represent 2 different species. The sensitivity panel on the hominis is pending. If this panel is different noting that epidermidis and hominis have the same break points then this would be more evidence that they are indeed 2 different species and therefore possibly contaminant. Will ask the micro lab to repeat the isolation and identification on these 2 bottles. In the meantime will redraw blood cultures and continue IV ceftriaxone given the patient is improving clinically. The epidermidis isolate is sensitive to cephalosporins. Plan: 1. Continue intravenous ceftriaxone. 2. Await sensitivity panel on the Staphylococcus hominis in the blood. 3. Repeat 2 sets of blood cultures today. 4. Repeat isolation identification of the two bacterial species in the earlier blood draws. 07/23/16 18:25 Subjective: Patient is resting in his hospital chair. He states that his left lower extremity is improved in regards to redness and swelling. He feels better overall. Denies any fevers or chills. Objective: Ceftriaxone #4 Vital Signs Temp Pulse Resp BP Pulse Ox 36.5 C 63 18 117/54 L 94 07/23/16 08:00 07/23/16 08:00 07/23/16 08:00 07/23/16 08:00 07/23/16 08:00 Microbiology 07/20/16 18:25 Blood Panel (PCR) - Final Blood Staph Coagulase Negative Laboratory Results 07/21/16 04:35 07/23/16 03:24 07/22/16 07/23/16 07/24/16 05:59 05:59 05:59 Intake Total 1280 1260 250 Output Total 2510 900 450 Balance -1230 360 -200 - Physical Exam General Appearance: WD/WN, alert, no apparent distress, non-toxic Respiratory: lungs clear, normal breath sounds, No respiratory distress Cardiac/Chest: regular rate, rhythm, No tachycardia Extremities: pedal edema, inflammation, erythema, No non-tender, No normal inspection (Left lower extremity with moderately dusky erythema to knee. Edema 3+ left lower extremity), No necrosis Skin: normal color, warm/dry, No rash Neuro/Psych: alert, normal mood/affect, oriented x 3 ICD10 Worksheet Patient Problems: Problems Problem Status Onset Cellulitis Acute Diarrhea Acute Hypotension Acute Renal insufficiency Acute CAD - Coronary arteriosclerosis Acute Chronic renal insufficiency, stage II (mild) Acute Diabetes Acute Hyperlipidemia Acute
[2016-07-23] MEDS ORDERED: ALTEPLASE 2 MG VIAL IVP PRN (13:13)
--- NOTE | 2016-07-23 14:01 | HOSPPROG ---
Hospitalist Progress Note Assessment/Plan: DIAGNOSES: -ACUTE SEPSIS, SEVERE, RESOLVED -CELLULITIS OF THE LEFT LEG -ACUTE RENAL FAILURE, HEMODYNAMIC IN ETIOLOGY, RESOLVED NOW BACK AT BASELINE CHRONIC KIDNEY DISEASE FUNCTION -ACUTE DIARRHEAL ILLNESS RESOLVED WITHOUT ANY SPECIFIC ETIOLOGIC INFECTIOUS PATHOGENS IDENTIFIED -CHRONIC OBSTRUCTIVE SLEEP APNEA -CHRONIC BILATERAL LEFT GREATER THAN RIGHT LEG EDEMA WITH CHRONIC ULCER AT THE LEFT ANKLE, CURRENTLY HEALED TO CLOSED PLANS: - continue current antibiotics -Elevation and compression of left leg -Will discuss with Infectious Disease SUBJECTIVE: he feels better with notably less discomfort in his leg No nausea vomiting or diarrhea, eating well No fever symptoms OBJECTIVE Vitals reviewed: stable with no fever Exam: alert oriented skin warm dry color ok resps not labored lungs clear BSs heart regular abd soft nondistended nontender, bowel sounds present limbs the cellulitis and edema in the left leg are notably decreased from the time of admission but he still has quite a bit of edema in still some cellulitis ; his ankle wound looks very good with no drainage or sign of local wound infection his peripheral IV has fallen out at the time of my examination but the site looks okay laboratory data: Blood sugars in good control Objective: Vital Signs Temp Pulse Resp BP Pulse Ox 36.5 C 63 18 117/54 L 94 07/23/16 08:00 07/23/16 08:00 07/23/16 08:00 07/23/16 08:00 07/23/16 08:00 Microbiology 07/20/16 18:25 Blood Panel (PCR) - Final Blood Staph Coagulase Negative Laboratory Results 07/21/16 04:35 07/23/16 03:24 07/22/16 07/23/16 07/24/16 06:59 06:59 06:59 Intake Total 1280 1260 250 Output Total 2510 900 450 Balance -1230 360 -200 PT 23.0 SEC (12.0-15.0) H 07/23/16 03:24 INR 2.02 (0.83-1.16) H 07/23/16 03:24 ICD10 Worksheet Patient Problems: Problems Problem Status Onset Cellulitis Acute Diarrhea Acute Hypotension Acute Renal insufficiency Acute CAD - Coronary arteriosclerosis Acute Chronic renal insufficiency, stage II (mild) Acute Diabetes Acute Hyperlipidemia Acute
[2016-07-23] MEDS: WARFARIN SODIUM 7.5 MG TAB PO SCH (17:06)
[2016-07-23] MEDS: FAMOTIDINE 20 MG TAB PO SCH (20:50)
[2016-07-24] MEDS: LEVOTHYROXINE 112 MCG TAB PO SCH (05:33)
[2016-07-24 06:22] LABS: INR 1.97 (0.83-1.16); PROTIME(PATIENT) 22.5 SEC (12.0-15.0)
[2016-07-24 06:25] LABS: ANION GAP 8 mEq/L (8-16); CALCIUM 9.5 mg/dL (8.5-10.4); CARBON DIOXIDE 24 mEq/l (22-31); CHLORIDE 109 mEq/L (97-110); CREATININE 1.2 mg/dL (0.7-1.3); GLOMERULAR FILTRATION RATE 59; GLUCOSE 102 mg/dL (70-100); POTASSIUM 4.6 mEq/L (3.5-5.2); SODIUM 141 mEq/L (134-144)
[2016-07-24] MEDS: CALCITRIOL 0.25 MCG CAP PO SCH (09:05)
[2016-07-24] MEDS: FOLIC ACID 1 MG TAB PO SCH (09:05)
[2016-07-24] MEDS: ATORVASTATIN CALCIUM 40 MG TAB PO SCH (09:05)
[2016-07-24] MEDS: PIOGLITAZONE HCL 15 MG TAB PO SCH (09:05)
[2016-07-24] MEDS: PANTOPRAZOLE SODIUM 40 MG TAB PO SCH (09:05)
[2016-07-24] MEDS: ASCORBIC ACID 500 MG TAB PO SCH (09:06)
[2016-07-24] MEDS: LEFLUNOMIDE 20 MG TAB PO SCH (09:06)
[2016-07-24] MEDS: TAMSULOSIN HCL 0.4 MG CAP PO SCH (09:06)
[2016-07-24] MEDS: SERTRALINE HCL 100 MG TAB PO SCH (09:06)
[2016-07-24] MEDS: MULTIVITAMINS 1 EACH TAB PO SCH (09:06)
[2016-07-24] MEDS: BACLOFEN 10 MG TAB PO SCH ×2 (09:06→20:32)
[2016-07-24] MEDS: ENALAPRIL MALEATE 5 MG TAB PO SCH ×2 (09:06→20:32)
[2016-07-24] MEDS: FERROUS SULFATE 325 MG TAB PO SCH (09:07)
[2016-07-24] MEDS: SILVER SULFADIAZINE 50 GM JAR TP SCH (09:07)
[2016-07-24] MEDS: GABAPENTIN 300 MG CAP PO SCH ×4 (09:07→20:33)
[2016-07-24] MEDS: amLODIPine BESYLATE 5 MG TAB PO SCH ×2 (09:07→20:32)
--- NOTE | 2016-07-24 13:33 | HOSPPROG ---
Hospitalist Progress Note Assessment/Plan: DIAGNOSES: -ACUTE SEPSIS, SEVERE, RESOLVED -CELLULITIS OF THE LEFT LEG -ACUTE RENAL FAILURE, HEMODYNAMIC IN ETIOLOGY, RESOLVED NOW BACK AT BASELINE CHRONIC KIDNEY DISEASE FUNCTION -ACUTE DIARRHEAL ILLNESS WITH RECURRENCE OF SYMPTOMS TODAY, WITHOUT ANY SPECIFIC ETIOLOGIC INFECTIOUS PATHOGENS IDENTIFIED -CHRONIC OBSTRUCTIVE SLEEP APNEA -CHRONIC BILATERAL LEFT GREATER THAN RIGHT LEG EDEMA WITH CHRONIC ULCER AT THE LEFT ANKLE, CURRENTLY HEALED TO CLOSED -CHRONIC ANTICOAGULATION I have reviewed the progress and plans today in detail with Dr Shreya Askew. PLANS: -continue current antibiotics -repeat blood cultures -Elevation and compression of left leg -antidiarrheal medicine -repeat INR and adjust med as needed -will need to decide on duration of abx and whether to continue IV or switch to po, and repeat cultures will be helpful for that -will resume his diuretic at present SUBJECTIVE: he feels good with little discomfort in his leg No nausea vomiting or diarrhea, eating well No fever symptoms OBJECTIVE Vitals reviewed: stable with no fever Exam: alert oriented skin warm dry color ok resps not labored lungs clear BSs heart regular abd soft nondistended nontender, bowel sounds present limbs at this point there remains remarkable cellulitis on dorsum of foot but the leg is nearly free of cellulitis, still no sign of abscess, ankle wound closed There is still quite a bit of edema of the leg and foot laboratory data: Blood sugars in good control renal function good, INR borderline at 1.97 Objective: Vital Signs Temp Pulse Resp BP Pulse Ox 36.6 C 55 L 18 118/67 94 07/24/16 07:08 07/24/16 07:08 07/24/16 07:08 07/24/16 07:08 07/24/16 07:08 Microbiology 07/20/16 18:25 Blood Panel (PCR) - Final Blood Staph Coagulase Negative Laboratory Results 07/21/16 04:35 07/24/16 05:45 07/23/16 07/24/16 07/25/16 06:59 06:59 06:59 Intake Total 1260 1000 75 Output Total 900 1200 525 Balance 360 -200 -450 PT 22.5 SEC (12.0-15.0) H 07/24/16 05:45 INR 1.97 (0.83-1.16) H 07/24/16 05:45 ICD10 Worksheet Patient Problems: Problems Problem Status Onset CAD - Coronary arteriosclerosis Acute Diabetes Acute Hyperlipidemia Acute Chronic renal insufficiency, stage II (mild) Acute Diarrhea Acute Hypotension Acute Renal insufficiency Acute Cellulitis Acute
--- NOTE | 2016-07-24 14:36 | PCMIDPN ---
Assessment/Plan: Assessment/Plan: 1. LLE cellulitis: - IMproving slowly. - currently on Ceftriaxone. -Needs to elevated LE more. Discussed importance of this with patient at length. -Creatinine improved. -Continue current care. -care coordinated with Dr. Douglas 2. Staph hominis/epi bacteremia: - uncertain significance. work up in progress. - will order f/u blood cx for completeness sake. Meds Ceftraixone 1g daily- 07/22/16. Subjective: Afebrile. Left leg still swollen. Not elevating it much. less red overall. Denies sob, abd pain. having diarrhea, states 4x/day. Objective: Vital Signs Temp Pulse Resp BP Pulse Ox 36.6 C 55 L 18 118/67 94 07/24/16 07:08 07/24/16 07:08 07/24/16 07:08 07/24/16 07:08 07/24/16 07:08 Microbiology 07/20/16 18:25 Blood Panel (PCR) - Final Blood Staph Coagulase Negative Laboratory Results 07/21/16 04:35 07/24/16 05:45 07/23/16 07/24/16 07/25/16 05:59 05:59 05:59 Intake Total 1260 1000 75 Output Total 900 1200 525 Balance 360 -200 -450 - Physical Exam General Appearance: alert, no apparent distress Respiratory: lungs clear Cardiac/Chest: regular rate, rhythm Extremities: swelling (LLE swelling, pitting. ) Abdomen: normal bowel sounds, non-tender, soft, No distended Skin: erythema (LLE: erythema on leg and dorsum of foot. less bright comparatively per pateint and Dr. Douglas. mild warmth.) ICD10 Worksheet Patient Problems: Problems Problem Status Onset Cellulitis Acute Diarrhea Acute Hypotension Acute Renal insufficiency Acute CAD - Coronary arteriosclerosis Acute Chronic renal insufficiency, stage II (mild) Acute Diabetes Acute Hyperlipidemia Acute
[2016-07-24] MEDS: WARFARIN SODIUM 5 MG TAB PO SCH (15:59)
[2016-07-24] MEDS: FUROSEMIDE 40 MG TAB PO SCH (15:59)
[2016-07-24] MEDS: FAMOTIDINE 20 MG TAB PO SCH (20:32)
[2016-07-24] MEDS ORDERED: LOPERAMIDE HCL 2 MG CAP PO PRN (22:13)
[2016-07-25] MEDS: LEVOTHYROXINE 112 MCG TAB PO SCH (06:21)
[2016-07-25 06:45] LABS: % IMMATURE GRANULYOCYTES 2.4 % (0.0-1.1); ABSOLUTE IMMATURE GRANULOCYTES 0.21 10^3/uL (0.00-0.10); ADD DIFF? NO; ADD MORPH? NO; ADD SCAN? NO; ATYPICAL LYMPHOCYTE FLAG 40 (0-99); FRAGMENT RBC FLAG 0 (0-99); HEMATOCRIT 37.8 % (40.0-51.0); HEMOGLOBIN 12.3 g/dL (13.7-17.5); LEFT SHIFT FLG 20 (0-99); LIPEMIA HEMOLYSIS FLAG 80 (0-99); MEAN CELL HEMOGLOBIN 29.6 pg (27.9-34.1); MEAN CELL HEMOGLOBIN CONCENTR. 32.5 g/dL (32.4-36.7); MEAN CELL VOLUME 91.1 fL (81.5-99.8); MEAN PLATELET VOLUME 10.5 fL (8.7-11.7); PLATELET CLUMPS FLAG 0 (0-99); PLATELET COUNT 232 10^3/uL (150-400); RED BLOOD CELL COUNT 4.15 10^6/uL (4.40-6.38); RED CELL DISTRIBUTION WIDTH 14.9 % (11.5-15.2)
[2016-07-25 07:34] LABS: ANION GAP 9 mEq/L (8-16); CALCIUM 9.4 mg/dL (8.5-10.4); CARBON DIOXIDE 25 mEq/l (22-31); CHLORIDE 106 mEq/L (97-110); CREATININE 1.2 mg/dL (0.7-1.3); GLOMERULAR FILTRATION RATE 59; GLUCOSE 96 mg/dL (70-100); POTASSIUM 4.5 mEq/L (3.5-5.2); SODIUM 140 mEq/L (134-144)
[2016-07-25] MEDS: FOLIC ACID 1 MG TAB PO SCH (09:51)
[2016-07-25] MEDS: PANTOPRAZOLE SODIUM 40 MG TAB PO SCH (09:51)
[2016-07-25] MEDS: FUROSEMIDE 40 MG TAB PO SCH ×2 (09:51→15:09)
[2016-07-25] MEDS: LEFLUNOMIDE 20 MG TAB PO SCH (09:51)
[2016-07-25] MEDS: ENALAPRIL MALEATE 5 MG TAB PO SCH ×2 (09:52→20:09)
[2016-07-25] MEDS: amLODIPine BESYLATE 5 MG TAB PO SCH ×2 (09:52→20:08)
[2016-07-25] MEDS: ATORVASTATIN CALCIUM 40 MG TAB PO SCH (09:52)
[2016-07-25] MEDS: CALCITRIOL 0.25 MCG CAP PO SCH (09:53)
[2016-07-25] MEDS: PIOGLITAZONE HCL 15 MG TAB PO SCH (09:53)
[2016-07-25] MEDS: BACLOFEN 10 MG TAB PO SCH ×2 (09:53→20:09)
[2016-07-25] MEDS: MULTIVITAMINS 1 EACH TAB PO SCH (09:53)
[2016-07-25] MEDS: FERROUS SULFATE 325 MG TAB PO SCH (09:53)
[2016-07-25] MEDS: SERTRALINE HCL 100 MG TAB PO SCH (09:53)
[2016-07-25] MEDS: GABAPENTIN 300 MG CAP PO SCH ×3 (09:53→20:08)
[2016-07-25] MEDS: ASCORBIC ACID 500 MG TAB PO SCH (09:54)
[2016-07-25] MEDS: TAMSULOSIN HCL 0.4 MG CAP PO SCH (09:54)
--- NOTE | 2016-07-25 15:14 | PCMIDPN ---
Assessment/Plan: #LLE cellulitis, Continued gradual improvement of erythema -minimal erythema remains, still on dorsum of foot, and very faint erythema on ankle. Corresponding to clinical improvement WBC normalized today --another day of IV antibiotics and consider transition to PO antibiotic tomorrow #Diarrhea - intermittent responds to anti-diarrheal, Cdiff neg # 2 diff CoNS species in 2 sets of blood cx, suspect contaminant, blood cx repeated yesterday #ARF on CRI: Cr normal 1.2 # Remote h/o MRSA: no contact isolation Meds ceftriaxone 1gm IV daily, #6 Micro 07/20 blood cx (2/2) CoNS - suspect contaminant 07/24 blood cx (2) pending Care coordinated with Dr. Douglas Subjective: remains cheerful no specific c/o diarrhea resolved after Imodium Objective: Vital Signs Temp Pulse Resp BP Pulse Ox 36.6 C 57 L 16 127/56 H 92 07/25/16 07:15 07/25/16 07:15 07/25/16 07:15 07/25/16 07:15 07/25/16 07:15 Laboratory Results 07/25/16 06:30 07/25/16 06:30 07/24/16 07/25/16 07/26/16 05:59 05:59 05:59 Intake Total 1000 1245 687 Output Total 1200 2575 450 Balance -200 -1330 237 Gen: pleasant nontoxic male NAD o/p MMM, fair dentition CV: felton no murmur Chest: clear B Abd: obese NT Ext: erythema LLE dorsum of foot and faint erythema ankle, erythema mid calf and medial thigh has resolved. Skin defect L posterior ankle, healed. Neuro: no motor deficits ICD10 Worksheet Patient Problems: Problems Problem Status Onset Cellulitis Acute Diarrhea Acute Hypotension Acute Renal insufficiency Acute CAD - Coronary arteriosclerosis Acute Chronic renal insufficiency, stage II (mild) Acute Diabetes Acute Hyperlipidemia Acute
--- NOTE | 2016-07-25 15:44 | HOSPPROG ---
Hospitalist Progress Note Assessment/Plan: DIAGNOSES: -ACUTE SEPSIS, SEVERE, RESOLVED -CELLULITIS OF THE LEFT LEG -ACUTE RENAL FAILURE, HEMODYNAMIC IN ETIOLOGY, RESOLVED NOW BACK AT BASELINE CHRONIC KIDNEY DISEASE FUNCTION -ACUTE DIARRHEAL ILLNESS WITH RECURRENCE OF SYMPTOMS TODAY, WITHOUT ANY SPECIFIC ETIOLOGIC INFECTIOUS PATHOGENS IDENTIFIED -CHRONIC OBSTRUCTIVE SLEEP APNEA -CHRONIC BILATERAL LEFT GREATER THAN RIGHT LEG EDEMA WITH CHRONIC ULCER AT THE LEFT ANKLE, CURRENTLY HEALED TO CLOSED -CHRONIC ANTICOAGULATION I have reviewed the progress and plans today in detail with Dr Rosa Reynolds PLANS: -continue current antibiotics -follow repeat blood cultures -Elevation and compression of left leg -antidiarrheal medicine -repeat INR and adjust med as needed -will need to decide on duration of abx and whether to continue IV or switch to po, and repeat cultures will be helpful for that -will resume his diuretic at present SUBJECTIVE: Continued improvement in his leg discomfort. Eating well Diarrhea improved with Lomotil OBJECTIVE Vitals reviewed: stable with no fever Exam: alert oriented skin warm dry color ok resps not labored lungs clear BSs heart regular abd soft nondistended nontender, bowel sounds present limbs at this point there remains remarkable cellulitis on dorsum of foot but the leg is nearly free of cellulitis, still no sign of abscess, ankle wound closed There is still quite a bit of edema of the leg and foot laboratory data: Blood sugars in good control Other lab stable Objective: Vital Signs Temp Pulse Resp BP Pulse Ox 36.6 C 57 L 16 127/56 H 92 07/25/16 07:15 07/25/16 07:15 07/25/16 07:15 07/25/16 07:15 07/25/16 07:15 Laboratory Results 07/25/16 06:30 07/25/16 06:30 07/24/16 07/25/16 07/26/16 06:59 06:59 06:59 Intake Total 1000 1245 687 Output Total 1200 2575 450 Balance -200 -1330 237 PT 22.5 SEC (12.0-15.0) H 07/24/16 05:45 INR 1.97 (0.83-1.16) H 07/24/16 05:45 ICD10 Worksheet Patient Problems: Problems Problem Status Onset Cellulitis Acute Diarrhea Acute Hypotension Acute Renal insufficiency Acute CAD - Coronary arteriosclerosis Acute Chronic renal insufficiency, stage II (mild) Acute Diabetes Acute Hyperlipidemia Acute
[2016-07-25] MEDS: SILVER SULFADIAZINE 50 GM JAR TP SCH (17:12)
[2016-07-25] MEDS: WARFARIN SODIUM 7.5 MG TAB PO SCH (17:17)
[2016-07-25] MEDS: FAMOTIDINE 20 MG TAB PO SCH (20:09)
[2016-07-26] MEDS: LEVOTHYROXINE 112 MCG TAB PO SCH (04:49)
[2016-07-26 05:10] LABS: INR 1.9 (0.83-1.16); PROTIME(PATIENT) 21.9 SEC (12.0-15.0)
[2016-07-26] MEDS: TAMSULOSIN HCL 0.4 MG CAP PO SCH (09:58)
[2016-07-26] MEDS: PIOGLITAZONE HCL 15 MG TAB PO SCH (09:59)
[2016-07-26] MEDS: BACLOFEN 10 MG TAB PO SCH ×2 (09:59→22:15)
[2016-07-26] MEDS: MULTIVITAMINS 1 EACH TAB PO SCH (09:59)
[2016-07-26] MEDS: GABAPENTIN 300 MG CAP PO SCH ×3 (09:59→22:15)
[2016-07-26] MEDS: FERROUS SULFATE 325 MG TAB PO SCH (09:59)
[2016-07-26] MEDS: CALCITRIOL 0.25 MCG CAP PO SCH (09:59)
[2016-07-26] MEDS: amLODIPine BESYLATE 5 MG TAB PO SCH ×2 (09:59→22:16)
[2016-07-26] MEDS: FOLIC ACID 1 MG TAB PO SCH (09:59)
[2016-07-26] MEDS: ENALAPRIL MALEATE 5 MG TAB PO SCH ×2 (10:00→22:15)
[2016-07-26] MEDS: PANTOPRAZOLE SODIUM 40 MG TAB PO SCH (10:00)
[2016-07-26] MEDS: LEFLUNOMIDE 20 MG TAB PO SCH (10:01)
[2016-07-26] MEDS: FUROSEMIDE 40 MG TAB PO SCH ×2 (10:01→15:29)
[2016-07-26] MEDS: ASCORBIC ACID 500 MG TAB PO SCH (10:01)
[2016-07-26] MEDS: SERTRALINE HCL 100 MG TAB PO SCH (10:01)
[2016-07-26] MEDS: ATORVASTATIN CALCIUM 40 MG TAB PO SCH (10:02)
--- NOTE | 2016-07-26 13:42 | PCMIDPN ---
Assessment/Plan: #LLE cellulitis, Continued gradual improvement of erythema -minimal erythema remains - primarily of dorsum of foot. Corresponding to clinical improvement WBC normalized yesterday, AF --another day of IV antibiotics dc home tomorrow on Keflex 500mg PO TID x 1 more week # 2 diff CoNS species in 2 sets of blood cx, suspect contaminant,07/24 blood cx negative to date #ARF on CRI:REsolved, no new labs today # Remote h/o MRSA: no contact isolation Meds ceftriaxone 1gm IV daily, #7 Micro 07/20 blood cx (2/2) 2 diff CoNS - suspect contaminant 07/24 blood cx (2) NGTD Care coordinated with Dr. Douglas Subjective: Reluctant to go home because enjoying his hospital stay Objective: Vital Signs Temp Pulse Resp BP Pulse Ox 36.6 C 59 L 18 114/51 L 97 07/26/16 12:19 07/26/16 12:19 07/26/16 12:19 07/26/16 12:19 07/26/16 12:19 Laboratory Results 07/25/16 06:30 07/25/16 06:30 07/25/16 07/26/16 07/27/16 05:59 05:59 05:59 Intake Total 1245 1587 360 Output Total 2575 1250 450 Balance -1330 337 -90 Gen: pleasant nontoxic male NAD, talkative o/p MMM, CV: felton no murmur Chest: clear B Abd: obese NT Ext: erythema LLE dorsum of foot and VERY faint erythema ankle, erythema mid calf and medial thigh has resolved. Skin defect L posterior ankle, healed. Neuro: no motor deficits ICD10 Worksheet Patient Problems: Problems Problem Status Onset Cellulitis Acute Diarrhea Acute Hypotension Acute Renal insufficiency Acute CAD - Coronary arteriosclerosis Acute Chronic renal insufficiency, stage II (mild) Acute Diabetes Acute Hyperlipidemia Acute
[2016-07-26] MEDS: WARFARIN SODIUM 5 MG TAB PO SCH (15:30)
--- NOTE | 2016-07-26 16:34 | HOSPPROG ---
Hospitalist Progress Note Assessment/Plan: DIAGNOSES: -ACUTE SEPSIS, SEVERE, RESOLVED -CELLULITIS OF THE LEFT LEG -ACUTE RENAL FAILURE, HEMODYNAMIC IN ETIOLOGY, RESOLVED NOW BACK AT BASELINE CHRONIC KIDNEY DISEASE FUNCTION -ACUTE DIARRHEAL ILLNESS WITH RECURRENCE OF SYMPTOMS TODAY, WITHOUT ANY SPECIFIC ETIOLOGIC INFECTIOUS PATHOGENS IDENTIFIED -CHRONIC OBSTRUCTIVE SLEEP APNEA -CHRONIC BILATERAL LEFT GREATER THAN RIGHT LEG EDEMA WITH CHRONIC ULCER AT THE LEFT ANKLE, CURRENTLY HEALED TO CLOSED -CHRONIC ANTICOAGULATION I have reviewed the progress and plans today in detail with Dr Rosa Reynolds At this point he continues to progress fairly slowly and still has some cellulitis on his foot. However clinically he is doing reasonably well and we feel that he probably could go home on outpatient antibiotics tomorrow. He remains difficult to determine whether the Staph hominis is a contaminant or not , however with only growth in 1 bottle and no growth at all and the repeat cultures this may be a contaminant. PLANS: -continue current antibiotics -follow repeat blood cultures -Elevation and compression of left leg -antidiarrheal medicine -I would not adjust Coumadin at this time, but need to follow his INR and continue to follow it until stabilized after he completes antibiotics as outpatient -will need to decide on duration of abx and whether to continue IV or switch to po, and repeat cultures will be helpful for that -continue his diuretic at present SUBJECTIVE: Continued improvement in his leg discomfort. Eating well Diarrhea improved with Lomotil OBJECTIVE Vitals reviewed: stable with no fever Exam: alert oriented skin warm dry color ok resps not labored lungs clear BSs heart regular abd soft nondistended nontender, bowel sounds present limbs at this point there remains remarkable cellulitis on dorsum of foot but the leg is nearly free of cellulitis, still no sign of abscess, ankle wound closed There is still quite a bit of edema of the leg and foot laboratory data: INR 1.90 other lab stable Culture data: No growth yet from cultures obtained July 24 Objective: Vital Signs Temp Pulse Resp BP Pulse Ox 36.6 C 59 L 18 114/51 L 97 07/26/16 12:19 07/26/16 12:19 07/26/16 12:19 07/26/16 12:19 07/26/16 12:19 Microbiology 07/20/16 18:40 Blood Culture - Final Blood Staphylococcus Hominis Laboratory Results 07/25/16 06:30 07/25/16 06:30 07/25/16 07/26/1617 06:59 06:59 06:59 Intake Total 1245 1587 360 Output Total 9915 1250 450 Balance -1330 337 -90 PT 21.9 SEC (12.0-15.0) H 07/26/16 04:50 INR 1.90 (0.83-1.16) H 07/26/16 04:50 ICD10 Worksheet Patient Problems: Problems Problem Status Onset Cellulitis Acute Diarrhea Acute Hypotension Acute Renal insufficiency Acute CAD - Coronary arteriosclerosis Acute Chronic renal insufficiency, stage II (mild) Acute Diabetes Acute Hyperlipidemia Acute
[2016-07-26] MEDS: SILVER SULFADIAZINE 50 GM JAR TP SCH (18:58)
[2016-07-26] MEDS: FAMOTIDINE 20 MG TAB PO SCH (22:19)
[2016-07-27] MEDS: LEVOTHYROXINE 112 MCG TAB PO SCH (05:35)
[2016-07-27 06:04] LABS: INR 1.98 (0.83-1.16); PROTIME(PATIENT) 22.6 SEC (12.0-15.0)
[2016-07-27 08:04] VITALS: BP 129/60; PULSE 60; RESP 16; TEMP 98.6; O2SAT 91
[2016-07-27] MEDS: FUROSEMIDE 40 MG TAB PO SCH ×2 (11:04→15:18)
[2016-07-27] MEDS: MULTIVITAMINS 1 EACH TAB PO SCH (11:04)
[2016-07-27] MEDS: BACLOFEN 10 MG TAB PO SCH (11:04)
[2016-07-27] MEDS: FOLIC ACID 1 MG TAB PO SCH (11:05)
[2016-07-27] MEDS: ATORVASTATIN CALCIUM 40 MG TAB PO SCH (11:05)
[2016-07-27] MEDS: GABAPENTIN 300 MG CAP PO SCH ×2 (11:05→15:19)
[2016-07-27] MEDS: FERROUS SULFATE 325 MG TAB PO SCH (11:05)
[2016-07-27] MEDS: LEFLUNOMIDE 20 MG TAB PO SCH (11:05)
[2016-07-27] MEDS: ASCORBIC ACID 500 MG TAB PO SCH (11:05)
[2016-07-27] MEDS: ENALAPRIL MALEATE 5 MG TAB PO SCH (11:06)
[2016-07-27] MEDS: TAMSULOSIN HCL 0.4 MG CAP PO SCH (11:06)
[2016-07-27] MEDS: PIOGLITAZONE HCL 15 MG TAB PO SCH (11:07)
[2016-07-27] MEDS: amLODIPine BESYLATE 5 MG TAB PO SCH (11:07)
[2016-07-27] MEDS: SERTRALINE HCL 100 MG TAB PO SCH (11:07)
[2016-07-27] MEDS: CALCITRIOL 0.25 MCG CAP PO SCH (11:07)
[2016-07-27] MEDS: PANTOPRAZOLE SODIUM 40 MG TAB PO SCH (11:07)
[2016-07-27] MEDS: SILVER SULFADIAZINE 50 GM JAR TP SCH (12:16)
--- NOTE | 2016-07-27 13:20 | PDIAF ---
- Diagnosis Diagnosis: cellulitis of leg; stasis dermatitis; chronic edema Code Status: Full Code - Medication Management Discharge Medications: Medications to Continue on Transfer Doxycycline Hyclate 50 mg PO BID 05/27/11 [Last Taken 07/20/16] Folic Acid [Folic Acid 1 MG (*)] 1 mg PO DAILY 11/02/12 [Last Taken 07/20/16] Pioglitazone HCl [Actos 15mg (*)] 15 mg PO DAILY 11/02/12 [Last Taken 07/20/16] Ranitidine HCl [Ranitidine HCl 150 mg] 150 mg PO DAILY@199911/02/12 [Last Taken 07/19/16] Sertraline HCl [Zoloft 100mg (*)] 100 mg PO DAILY 11/02/12 [Last Taken 07/20/16] Ascorbic Acid [Vitamin C 500 mg (*)] 1,000 mg PO DAILY 06/10/13 [Last Taken ] Clotrimazole 1% [Lotrimin 1%] 1 oneal TP DAILY PRN 06/10/13 [Last Taken 09/04/13 08:00] EPINEPHrine [Epipen 0.3 MG] 0.3 mg IM ONCE PRN 06/10/13 [Last Taken 09/04/13 08: 00] Fluocinonide/Emollient Base [Fluocinonide-Emol 0.05% Cream] 15 gm TP BID PRN 04/11 [Last Taken 09/04/13 08:00] Levothyroxine [Synthroid 112 mcg (*)] 112 mcg PO DAILY06 06/10/13 [Last Taken ] Multivitamins [Multivitamin (*)] 1 each PO DAILY 06/10/13 [Last Taken 07/20/16] Atorvastatin Calcium [Lipitor 40 mg (*)] 40 mg PO DAILY 07/01/13 [Last Taken ] Herbals/Supplements -Info Only 1 each PO AD 07/01/13 [Last Taken 08/21/13] methYLPHENIDATE HCL [Ritalin 10mg (*)] 10 mg PO DAILY 07/01/13 [Last Taken 07/20] Rituxan Dose Unknown 1 infusset IV Q180D 09/04/13 [Last Taken 10/27/13] Silver Sulfadiazine [Thermazene (*)] 1 oneal TP DAILY 09/04/13 [Last Taken ] Baclofen [Baclofen 10 mg (*)] 10 mg PO BID 06/24/14 [Last Taken 07/20/16] Leflunomide [Arava 20 mg (*)] 20 mg PO DAILY 06/24/14 [Last Taken 07/20/16] Methylphenidate HCl [Ritalin 5mg (*)] 5 mg PO DAILY PRN 06/24/14 [Last Taken Unknown] Tamsulosin HCl [Flomax 0.4 MG (*)] 0.4 mg PO DAILY 06/24/14 [Last Taken 07/20/16 ] Ferrous Sulfate [Ferrous Sulf 325 MG (*)] 325 mg PO DAILY #30 tab 06/26/14 [ Last Taken 07/20/16] Pantoprazole Sodium [Protonix 40mg (*)] 40 mg PO DAILY #30 tab 06/26/14 [Last Taken 07/20/16] Calcitriol [Calcitriol (*)] 0.25 mcg PO DAILY 07/20/16 [Last Taken 07/20/16] Enalapril Maleate [Vasotec 5 MG (*)] 5 mg PO BID 07/20/16 [Last Taken 07/20/16] Furosemide [Lasix 40 MG (*)] 40 mg PO BID 07/20/16 [Last Taken 07/20/16] Gabapentin [Neurontin 300 MG (*)] 300 mg PO BID@,07/20/16 [Last Taken 07/20 09:00] Gabapentin [Neurontin 300 MG (*)] 600 mg PO HS 07/20/16 [Last Taken 07/19/16] Hydrocodone/Acetaminophen [[place] 5/325 (*)] 0.5 tab PO Q4H PRN 07/20/16 [Last Taken 07/20/16] Warfarin Sodium [Coumadin 5MG (*)] 10 mg PO Q2D 07/20/16 [Last Taken Unknown] Warfarin Sodium [Coumadin 7.5MG (*)] 7.5 mg PO Q2D 07/20/16 [Last Taken Unknown] amLODIPine BESYLATE [Norvasc 5 mg (*)] 5 mg PO BID 07/20/16 [Last Taken 07/20/16 ] Cephalexin [Keflex (*)] 500 mg PO TID #21 cap 07/27/16 [Last Taken Unknown] Discharge Medications: Refer to the Discharge Home Medication list for PRN reason. - Orders Services needed: Home Care, Registered Nurse, Physical Therapy, Occupational Therapy Home Care Face to Face: I certify that this patient was under my care and that I had the required [id number] encounter meeting the encounter requirements on the discharge day. My findings support the fact that the patient is homebound as defined in CMS Chapter 7 Medicare Benefits Manual 30.1.1, The condition of the patient is such that there exists a normal inability to leave home and consequently, leaving home would require a considerable and taxing effort. Diet Recommendation: sodium restricted Diet Texture: Regular Texture Diet - Follow Up Care Current Providers and Referrals: Connor Mckeon MD [Primary Care Provider] - As per Instructions
[2016-07-27] MEDS: WARFARIN SODIUM 7.5 MG TAB PO SCH (15:19)
== END 2016-07-27 16:21 | disposition home health service (06) | DRG 872 ==
LOC: EDUNIT# → F2W 19:53
PROVIDERS: ADMIT Internal Medicine; ATTEND Internal Medicine
PROC: 02HV33Z Insertion of Infusion Device into Superior Vena Cava, Percutaneous Approach (ICD-10-PCS; principal; 2016-07-23)
DX: A41.1 Sepsis due to other specified staphylococcus (principal); L03.116 Cellulitis of left lower limb; E11.622 Type 2 diabetes mellitus with other skin ulcer; L97.209 Non-pressure chronic ulcer of unspecified calf with unspecified severity; R19.7 Diarrhea, unspecified; N17.9 Acute kidney failure, unspecified; I25.10 Atherosclerotic heart disease of native coronary artery without angina pectoris; E11.22 Type 2 diabetes mellitus with diabetic chronic kidney disease; I12.9 Hypertensive chronic kidney disease with stage 1 through stage 4 chronic kidney disease, or unspecified chronic kidney disease; N18.9 Chronic kidney disease, unspecified; M06.9 Rheumatoid arthritis, unspecified; E03.9 Hypothyroidism, unspecified; G47.33 Obstructive sleep apnea (adult) (pediatric); Z86.718 Personal history of other venous thrombosis and embolism; Z86.711 Personal history of pulmonary embolism; Z95.5 Presence of coronary angioplasty implant and graft; Z79.01 Long term (current) use of anticoagulants
CPT/HCPCS: 97116-GP; 97161-GP; 97166-GO; 97530-GP; 97535-GO; C1751; G8978-GP-CJ; G8979-GP-CI; G8980-GP-CI; G8987-GO-CI; G8988-GO-CI; J0696